=== PATIENT | female | born 1990 ===

== ENCOUNTER 2021-06-30 11:00 | Outpatient (RCR) | payer BC, SELFPAY | END 2021-09-16 07:55 | disposition home or self-care (01) | LOC: HO.PT 11:00 | PROVIDERS: PCP Family Medicine | DX: R10.2 Pelvic and perineal pain (principal) | CPT/HCPCS: 97110; 97112; 97161 ==

== ENCOUNTER 2024-03-21 13:29 | Outpatient (AMB) | payer BC, SELFPAY ==
[2024-03-21 13:45] VITALS: BP 102/64; PULSE 68; O2SAT 98; BMI 26.8
--- NOTE | 2024-03-21 13:45 | MHC.PC.OV ---
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 by: Self / Same As Patient Allergies ciprofloxacin [From Cipro] Allergy (Mild, Verified 03/21/24 13:48) Hives cyclobenzaprine [From Flexeril] Adverse Reaction (Verified 03/21/24 13:48) Muscle cramps Medication List - Last Reconciled 03/21/24 by Biipn Hobson MD [id number] fum-folic [id number] mg-mcg-mg (One Daily ) pkgs PO Tobacco use date assessed: 03/21/24 Dental Screening Dental Screen Date: 03/21/24 Did you have a dental visit in the last 12 months?: Yes Did you have a dental problem in the last 6 months where you did not have access to dental care?: No Was dental information given to patient?: Patient has dentist HPI ACTUARIAL INTERN/Preventative Care HPI Details 33-year-old overweight female being seen for the 1st time. 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 1. Little interest or pleasure in doing things: not at all 2. Feeling down, depressed, or hopeless: not at all 3. Trouble falling or staying asleep, or sleeping too much: not at all 4. Feeling tired or having little energy: not at all 5. Poor appetite or overeating: not at all 6. Feeling bad about yourself - or that you are a failure or have let yourself or your family down: not at all 7. Trouble concentrating on things, such as reading the newspaper or watching television: not at all 8. Moving or speaking so slowly that other people could have noticed. Or the opposite - being so fidgety or restless that you have been moving around a lot more than usual: not at all 9. Thoughts that you would be better off or of hurting yourself in some way: not at all Total score: 0 Depression Screening Interpretation: Negative Depression Screening Done: Yes 47543 - PHQ-9 Billing: Yes Source: Developed by Drs. Nelson Bill, Gill Davila, Delmar Goldberg and colleagues, with an educational navjot from [employer] Thrive Questionnaire Date Thrive assessed: 03/21/24 I am a: Patient What is your living situation today?: I have a steady place to live Within the past 12 months, did the food you bought not last and you didn't have the money to get more?: Never true Within the past 12 months, did you worry whether your food would run out before you got money to buy more?: Never true Do you have trouble paying for medicines?: No Do you have trouble getting transportation to medical appointments?: No Do you have trouble paying your heating and electricity bill?: No Do you have trouble taking care of your child, family member or friend?: No Do you have trouble with day-to-day activities such as bathing, preparing meals, shopping, managing finances, etc.?: No Are you currently unemployed and looking for a job?: No Are you interested in more education?: No Please select the resources that you would like help with: None Currently or been in a relationship where the following occur: no concerns reported THRIVE Score: 0 AUDIT C Alcohol Use Questionnaire (AUDIT-C) 1. How often do you have a drink containing alcohol?: Monthly or less 2. How many drinks containing alcohol do you have on a typical day when you are drinking?: 1 or 2 3. How often do you have six or more drinks on one occasion?: Never Total Score: 1 ARNULFO-7 AMB Questionnaire ARNULFO-7 Date ARNULFO - 7 assessed: 03/21/24 Feeling nervous, anxious, or on edge: 0 = Not at all Not being able to stop or control worryin = Not at all Worrying too much about different things: 0 = Not at all Trouble relaxin = Not at all Being so restless that it is hard to sit still: 0 = Not at all Becoming easily annoyed or irritable: 0 = Not at all Feeling afraid as if something awful might happen: 0 = Not at all Total ARNULFO-7 score (0-4 normal; 5-9 mild; 10-14 moderate; 15-21 severe): 0 Source: Developed by Drs. Nelson Bill, Gill Davila, Delmar Goldberg and colleagues, with an educational navjot from [employer] ARNULFO-7 Assessment Billing ARNULFO-7 Assessment Tool: ARNULFO-7 Assessment 84702 Physical exam (Primary Care) Vital Signs: Last Vital Signs Pulse 68 03/21/24 13:45 BP 102/64 03/21/24 13:45 Pulse Ox 98 03/21/24 13:45 Oxygen Delivery Method Room Air 03/21/24 13:45 BMI result Body Mass Index 26.8 Tobacco/Smoking Status: Tobacco use Status Tobacco use date assessed 03/21/24 03/21/24 13:53 Patient Tobacco Use Status Never used Tobacco 03/21/24 14:20 e-Cigarette/Vaping Use Never Used 03/21/24 14:20 PHQ-9: PHQ-9 Score PHQ-9: Total score 0 03/21/24 14:23 Depression Screening Interpretation: Negative Thrive Assessment: Date of Thrive Assessment Date Thrive assessed 03/21/24 03/21/24 13:51 Currently or been in a relationship where the following occur: no concerns reported Const General: alert; No acute distress Eyes Conjunctivae: conjunctivae normal Resp Auscultation: clear to auscultation bilaterally Cardio Rate: regular rate Rhythm: regular rhythm GI Inspection: Yes normal to inspection Extrem General: Yes normal to inspection and No edema Assessment and Plan Assessment & Plan (1) Overweight: Code(s): E66.3 - Overweight Plan: increase oral fluids , exercise and adequate sleep and eat healthy Coding Level of Care Code New Pt Level 4 (55317) Diagnoses Overweight E66.3 Additional Codes ARNULFO-7 Assessment Billing - ARNULFO-7 Assessment Tool: ARNULFO-7 Assessment 47269 ([id number])
== END 2024-03-21 14:29 | disposition home or self-care (01) ==
PROVIDERS: PCP Internal Medicine; Visit Provider Internal Medicine
DX: E66.3 Overweight (principal)
CPT/HCPCS: 99204

== ENCOUNTER 2024-08-11 13:44 | Outpatient (AMB) | payer BC, SELFPAY ==
--- NOTE | 2024-08-11 13:48 | MHC.PC.OV ---
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 by: Self / Same As Patient Allergies ciprofloxacin [From Cipro] Allergy (Mild, Verified 08/11/24 13:55) Hives cyclobenzaprine [From Flexeril] Adverse Reaction (Verified 08/11/24 13:55) Muscle cramps Medication List - Last Reconciled 08/11/24 by Bipin Hobson MD [id number] fum-folic [id number] mg-mcg-mg (One Daily ) pkgs PO Tobacco use date assessed: 03/21/24 Dental Screening Dental Screen Date: 08/11/24 Did you have a dental visit in the last 12 months?: Yes Did you have a dental problem in the last 6 months where you did not have access to dental care?: No Was dental information given to patient?: Patient has dentist HPI Annual Exam HPI Details 33-year-old female coming in for physical exam. 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 complains of tinnitus seen ENT. [facility] Surgical History (Updated 08/11/24 @ 13:53 by JUAN CARLOS Leal) No pertinent past surgical history Family History Family/Other Mental health disorder Social History Housing: House Alcohol intake: current Comment: once Q 2 weeks 1-2 glasses Patient Tobacco Use Status: Never used Tobacco e-Cigarette/Vaping Use: Never Used Second Hand Smoke Exposure: No service: No Current occupational status: employed Current occupational exposures/hazards: No Cognitive needs: No Hearing needs: No Vision needs: No Questionnaire PHQ-9 Over the last 2 weeks, how often have you been bothered by any of the following problems? 1. Little interest or pleasure in doing things: not at all 2. Feeling down, depressed, or hopeless: not at all 3. Trouble falling or staying asleep, or sleeping too much: not at all 4. Feeling tired or having little energy: not at all 5. Poor appetite or overeating: not at all 6. Feeling bad about yourself - or that you are a failure or have let yourself or your family down: not at all 7. Trouble concentrating on things, such as reading the newspaper or watching television: not at all 8. Moving or speaking so slowly that other people could have noticed. Or the opposite - being so fidgety or restless that you have been moving around a lot more than usual: not at all 9. Thoughts that you would be better off or of hurting yourself in some way: not at all Total score: 0 Depression Screening Interpretation: Negative Depression Screening Done: Yes Source: Developed by Drs. Nelson Bill, Gill Davila, Delmar Goldberg and colleagues, with an educational navjot from [employer]. Thrive Questionnaire Date Thrive assessed: 08/05/24 I am a: Patient What is your living situation today?: I have a steady place to live Within the past 12 months, did the food you bought not last and you didn't have the money to get more?: Never true Within the past 12 months, did you worry whether your food would run out before you got money to buy more?: Never true Do you have trouble paying for medicines?: No Do you have trouble getting transportation to medical appointments?: No Do you have trouble paying your heating and electricity bill?: No Do you have trouble taking care of your child, family member or friend?: No Do you have trouble with day-to-day activities such as bathing, preparing meals, shopping, managing finances, etc.?: No Are you currently unemployed and looking for a job?: No Are you interested in more education?: No Please select the resources that you would like help with: None Currently or been in a relationship where the following occur: No concerns reported THRIVE Score: 0 AUDIT C Alcohol Use Questionnaire (AUDIT-C) 1. How often do you have a drink containing alcohol?: Monthly or less 2. How many drinks containing alcohol do you have on a typical day when you are drinking?: 1 or 2 3. How often do you have six or more drinks on one occasion?: Never Total Score: 1 ARNULFO-7 AMB Questionnaire ARNULFO-7 Date ARNULFO - 7 assessed: 08/11/24 Feeling nervous, anxious, or on edge: 0 = Not at all Not being able to stop or control worryin = Not at all Worrying too much about different things: 0 = Not at all Trouble relaxin = Not at all Being so restless that it is hard to sit still: 0 = Not at all Becoming easily annoyed or irritable: 1 = Several days Feeling afraid as if something awful might happen: 0 = Not at all Total ARNULFO-7 score (0-4 normal; 5-9 mild; 10-14 moderate; 15-21 severe): 1 Source: Developed by Drs. Nelson Bill, Gill Davila, Delmar Goldberg and colleagues, with an educational navjot from [employer]. Review of Systems Const Denies poor appetite and Denies weakness Eyes Denies no additional complaints ENT Reports Normal hearing present, Denies dizziness, Denies nasal congestion, Denies tinnitus and Denies sore throat Card Denies chest pain, Denies syncope, Denies rapid heart rate and Denies dyspnea Resp Denies cough and Denies dyspnea GI Denies change in stool character, Reports constipation, Denies diarrhea, Denies nausea and Denies vomiting Denies urinary frequency, Denies difficulty voiding and Denies dysuria Neuro Reports Normal hearing present, Denies confusion, Denies dizziness, Denies syncope and Denies weakness Psych Denies confusion Physical exam (Primary Care) BMI result Body Mass Index 26.2 Tobacco/Smoking Status: Tobacco use Status Tobacco use date assessed 03/21/24 03/21/24 13:53 Patient Tobacco Use Status Never used Tobacco 03/21/24 14:20 e-Cigarette/Vaping Use Never Used 03/21/24 14:20 Depression Screening Interpretation: Negative Thrive Assessment: Date of Thrive Assessment Date Thrive assessed 08/05/24 08/05/24 18:24 Currently or been in a relationship where the following occur: No concerns reported Const General: No confusion Orientation/consciousness: No confusion HENMT Head: Yes normocephalic Ears: external ears normal and TM's normal bilaterally Face and sinus: Yes normal facial exam Mouth: moist mucous membranes Throat: Yes tonsils normal Eyes Conjunctivae: conjunctivae normal Pupils: Equal, round and reactive pupils present and Pupil accommodation reflex normal Direct Ophthalmoscopy: normal light reflex Neck Neck: No lymphadenopathy Thyroid: Thyroid normal Chest Chest palpation & inspection: normal inspection of the chest Resp Effort & Inspection: normal respiratory effort and no audible wheezes Auscultation: clear to auscultation bilaterally, no crackles, no wheezes and lung sounds not diminished Cardio Rate: regular rate Rhythm: regular rhythm Peripheral pulses: radial pulses present and dorsalis pedis present GI Palpation (GI): no masses Auscultation: normal bowel sounds and normoactive bowel sounds Rectal Exam - Female: deferred Skin General skin exam: no rashes or lesions noted Rashes: no rashes Neuro General: No confusion Cranial nerves: Yes Equal, round and reactive pupils present and Yes Normal hearing present Cognition (Neuro): normal cognition Gait exam (Neuro): Normal gait present Motor exam (neuro): 5/5 motor strength present throughout Deep tendon reflexes (DTR's): Right brachioradialis reflex intensity grade: 2+, Left brachioradialis reflex intensity grade: 2+, Right patellar reflex intensity grade: 2+ and Left patellar reflex intensity grade: 2+ Extrem General: No edema Assessment and Plan Assessment & Plan (1) Annual physical exam: Code(s): Z00.00 - Encounter for general adult medical examination without abnormal findings Plan: Patient is advised to eat healthy, keep well hydrated, keep active and have adequate sleep. (2) : Code(s): Z34.90 - Encounter for supervision of normal , unspecified, unspecified trimester Coding Level of Care Code Est Pt Prev Care 18-39y(68851) Diagnoses Annual physical exam Z00.00 Z34.90
[2024-08-11 13:49] VITALS: BP 100/72; PULSE 80; O2SAT 99; BMI 26.2
== END 2024-08-11 14:10 | disposition home or self-care (01) ==
PROVIDERS: PCP Internal Medicine; Visit Provider Internal Medicine
DX: Z00.00 Encounter for general adult medical examination without abnormal findings (principal); Z34.90 Encounter for supervision of normal pregnancy, unspecified, unspecified trimester

== ENCOUNTER → 2024-08-11 13:44 | Outpatient (BNVA) | payer BC, SELFPAY | PROVIDERS: PCP Internal Medicine; Visit Provider Internal Medicine | DX: Z00.00 Encounter for general adult medical examination without abnormal findings (principal); Z34.90 Encounter for supervision of normal pregnancy, unspecified, unspecified trimester | CPT/HCPCS: 96127 ==

== ENCOUNTER 2024-09-04 12:19 | Outpatient (AMB) | payer BC, SELFPAY ==
--- NOTE | 2024-09-04 12:34 | MHC.OFFWIV ---
Intake Vital Signs 09/04/24 12:36 09/04/24 12:55 Height 5 ft 5.5 in Weight 163 lb BMI 26.7 BP 120/70 Blood Pressure Location Rt brachial Position Sitting Pulse 105 H 90 Pulse Source Pulse Oximeter Temp 98.6 F Pulse Oximetry (%) 98 100 Oxygen Delivery Method Room Air Intake Visit Reasons: EP-severe cough, sob Intake Note: Patient here for cough,crackling in chest, wheezing and SOB that has been present for about 1 week. pt is 7 weeks . Patient Tobacco Use Status: Never used Tobacco Allergies ciprofloxacin [From Cipro] Allergy (Mild, Verified 09/04/24 12:37) Hives cyclobenzaprine [From Flexeril] Adverse Reaction (Verified 09/04/24 12:37) Muscle cramps Do you need a note to return to daycare/school/sports/work: No HPI EP-severe cough, sob HPI Details This note is constructed using voice recognition software. While every effort has been made to ensure accuracy, planning and analysis manager errors may have been included. The patient is a 33 year old female who presents to the clinic today with cough for the past week and a half. She denies fever, chills, dyspnea, does report that she has had the cough for about a week and a half with no other symptoms. She notes that her son has also been coughing, but his is related to postnasal drip. She is getting up thin clear secretions, minimal amount. She does report that the cough is quite forceful. She has not taken anything to relieve the cough as she is 7 weeks and was unsure what it was safe to take. She does note that when she coughs she has some sort of wheezing. She denies body aches, fevers, chills, sinus congestion, ear pain, or any other URI symptoms. [facility] Surgical History (Updated 08/11/24 @ 13:53 by JUAN CARLOS Leal) No pertinent past surgical history Family History Family/Other Mental health disorder Social History Housing: House Alcohol intake: current Comment: once Q 2 weeks 1-2 glasses Patient Tobacco Use Status: Never used Tobacco e-Cigarette/Vaping Use: Never Used Second Hand Smoke Exposure: No service: No Current occupational status: employed Current occupational exposures/hazards: No Cognitive needs: No Hearing needs: No Vision needs: No Review of Systems Const All systems reviewed & are unremarkable except as noted in HPI and below Physical Exam Vital Signs: Last Vital Signs Temp 98.6 F 09/04/24 12:36 Pulse 105 H 09/04/24 12:36 BP 120/70 09/04/24 12:36 Pulse Ox 98 09/04/24 12:36 Oxygen Delivery Method Room Air 09/04/24 12:36 BMI result Body Mass Index 26.7 Const General: cooperative, healthy appearing, comfortable and no acute distress Orientation/consciousness: patient oriented x3 Limitations: no limitations HEENT Head: Yes normal to inspection Ears: hearing grossly normal bilaterally, external ears normal and TM abnormal retracted General nose exam: Normal external nose present, No nasal discharge present and Abnormal mucous membranes and turbinates present boggy and pale Face and sinus: Yes normal facial exam and Yes sinuses nontender Mouth: Normal oral and palatal mucosa present and moist mucous membranes Throat: Yes tonsils normal, Yes uvula midline, Yes posterior oropharynx abnormal (Erythema), Yes postnasal drainage and Yes cobblestoning Eyes General: appearance normal, both eyes and all related structures Neck Neck: Yes normal visual inspection Resp Effort & Inspection: normal respiratory effort, able to speak in complete sentences, Actively coughing, no respiratory distress, not tachypneic, no tripod positioning and no use of accessory muscles Auscultation: clear to auscultation bilaterally (Wheeze that clears with cough) Cardio Rate: regular rate Rhythm: regular rhythm Heart sounds: normal S1 and S2 Skin General skin exam: no rashes or lesions noted Neuro General: patient oriented x3 Extrem General: Yes normal to inspection and Yes no clubbing, cyanosis or edema Assessment & Plan Assessment & Plan (1) Allergic rhinitis: Code(s): J30.9 - Allergic rhinitis, unspecified Qualifiers: Allergic rhinitis trigger: unspecified Allergic rhinitis seasonality: unspecified Qualified Code(s): J30.9 - Allergic rhinitis, unspecified Plan: Supportive measures encouraged and reviewed. Advised patient to try second-generation antihistamine such as Zyrtec, Claritin, Juany or similar, with preference for claritin due to large amounts of supporting research of safe us in . Advised consideration of sinus rinse if needed. Albuterol inhaler prescribed for symptomatic management of wheeze. Patient instructed in use of inhaler. Advised patient to follow up with primary care provider with worsening or failure to resolve. Plan See above for full details and plan. Medications: New albuterol sulfate 90 mcg/actuation 1 inh inhalation Q4-6H PRN 1 ea 0RF shortness of breath or wheezing Coding Level of Care Code Est Pt Level 3 (20064) Diagnoses Allergic rhinitis, unspecified seasonality, unspecified trigger J30.9 Allergic rhinitis trigger: unspecified Allergic rhinitis seasonality: unspecified
[2024-09-04 12:36] VITALS: BP 120/70; PULSE 105; TEMP 37; O2SAT 98; BMI 26.7
[2024-09-04 12:55] VITALS: PULSE 90; O2SAT 100
== END 2024-09-04 13:01 | disposition home or self-care (01) ==
PROVIDERS: PCP Internal Medicine; Visit Provider Registered Nurse
DX: J30.9 Allergic rhinitis, unspecified (principal)

== ENCOUNTER → 2024-09-04 12:19 | Outpatient (BNVA) | payer BC, SELFPAY | PROVIDERS: PCP Internal Medicine; Visit Provider Registered Nurse ==

== ENCOUNTER 2025-03-31 11:35 | Outpatient (AMB) | payer BC, SELFPAY ==
[2025-03-31 12:03] VITALS: BP 102/72; PULSE 103; O2SAT 98; BMI 27.9
--- NOTE | 2025-03-31 12:03 | A.OFFPC_ITS ---
Vital Signs 03/31/25 12:03 Height 5 ft 5.5 in Weight 170 lb BMI 27.9 BP 102/72 Blood Pressure Location Lt brachial Position Sitting Pulse 103 H Pulse Source Pulse Oximeter Pulse Oximetry (%) 98 Oxygen Delivery Method Room Air Intake Visit Reasons: Ear blocked Allergies ciprofloxacin [From Cipro] Allergy (Mild, Verified 03/31/25 12:03) Hives cyclobenzaprine [From Flexeril] Adverse Reaction (Verified 03/31/25 12:03) Muscle cramps Tobacco use date assessed: 03/31/25 Dental Screening Dental Screen Date: 03/31/25 Did you have a dental visit in the last 12 months?: Yes Did you have a dental problem in the last 6 months where you did not have access to dental care?: No Was dental information given to patient?: Patient has dentist HPI Ear blocked HPI Details R ear complains of impacted cerumen. no pain PFSH Surgical History (Updated 08/11/24 @ 13:53 by JUAN CARLOS Leal) No pertinent past surgical history Family History Family/Other Mental health disorder Social History Housing: House Alcohol intake: current Comment: once Q 2 weeks 1-2 glasses Patient Tobacco Use Status: Never used Tobacco Tobacco use type: Cigarette e-Cigarette/Vaping Use: Never Used Second Hand Smoke Exposure: No service: No Current occupational status: employed Current occupational exposures/hazards: No Cognitive needs: No Hearing needs: No Vision needs: No Questionnaire PHQ-9 Over the last 2 weeks, how often have you been bothered by any of the following problems? 1. Little interest or pleasure in doing things: not at all 2. Feeling down, depressed, or hopeless: not at all 3. Trouble falling or staying asleep, or sleeping too much: not at all 4. Feeling tired or having little energy: not at all 5. Poor appetite or overeating: not at all 6. Feeling bad about yourself - or that you are a failure or have let yourself or your family down: not at all 7. Trouble concentrating on things, such as reading the newspaper or watching television: not at all 8. Moving or speaking so slowly that other people could have noticed. Or the opposite - being so fidgety or restless that you have been moving around a lot more than usual: not at all 9. Thoughts that you would be better off or of hurting yourself in some way: not at all Total score: 0 Source: Developed by Drs. Nelson Bill, Gill Davila, Delmar Goldberg and colleagues, with an educational navjot from [employer]. Thrive Questionnaire Date Thrive assessed: 03/30/25 I am a: Patient What is your living situation today?: I have a steady place to live Within the past 12 months, did the food you bought not last and you didn't have the money to get more?: Never true Within the past 12 months, did you worry whether your food would run out before you got money to buy more?: Never true Do you have trouble paying for medicines?: No Do you have trouble getting transportation to medical appointments?: No Do you have trouble paying your heating and electricity bill?: No Do you have trouble taking care of your child, family member or friend?: No Do you have trouble with day-to-day activities such as bathing, preparing meals, shopping, managing finances, etc.?: No Are you currently unemployed and looking for a job?: No Are you interested in more education?: No Please select the resources that you would like help with: None Currently or been in a relationship where the following occur: No concerns reported THRIVE Score: 0 AUDIT C Alcohol Use Questionnaire (AUDIT-C) 1. How often do you have a drink containing alcohol?: Monthly or less 2. How many drinks containing alcohol do you have on a typical day when you are drinking?: 1 or 2 3. How often do you have six or more drinks on one occasion?: Never Total Score: 1 ARNULFO-7 AMB Questionnaire ARNULFO-7 Date ARNULFO - 7 assessed: 03/31/25 Feeling nervous, anxious, or on edge: 0 = Not at all Not being able to stop or control worryin = Not at all Worrying too much about different things: 0 = Not at all Trouble relaxin = Not at all Being so restless that it is hard to sit still: 0 = Not at all Becoming easily annoyed or irritable: 0 = Not at all Feeling afraid as if something awful might happen: 0 = Not at all Total ARNULFO-7 score (0-4 normal; 5-9 mild; 10-14 moderate; 15-21 severe): 0 Source: Developed by Drs. Nelson Bill, Gill Davila, Delmar Goldberg and colleagues, with an educational navjot from [employer]. Physical exam (Primary Care) Vital Signs: Last Vital Signs Pulse 103 H 03/31/25 12:03 BP 102/72 03/31/25 12:03 Pulse Ox 98 03/31/25 12:03 Oxygen Delivery Method Room Air 03/31/25 12:03 BMI result Body Mass Index 27.9 Tobacco/Smoking Status: Tobacco use Status Tobacco use date assessed 03/31/25 03/31/25 12:06 Patient Tobacco Use Status Never used Tobacco 03/31/25 12:06 Tobacco use type Cigarette 03/31/25 12:06 e-Cigarette/Vaping Use Never Used 03/31/25 12:06 PHQ-9: PHQ-9 Score PHQ-9: Total score 0 03/31/25 12:06 Thrive Assessment: Date of Thrive Assessment Date Thrive assessed 03/30/25 03/31/25 12:06 Currently or been in a relationship where the following occur: No concerns reported Const Other: Normal ear, no impacted cerumen Coding Level of Care Code Est Pt Level 3 (71466) Diagnoses Tinnitus H93.19 Z34.90 Assessment & Plan Assessment & Plan (1) Tinnitus: Code(s): H93.19 - Tinnitus, unspecified ear Category: Medical (2) : Code(s): Z34.90 - Encounter for supervision of normal , unspecified, unspecified trimester Category: Medical Plan History of Present Illness The patient is a 34-year-old female presenting with an acute problem. The only specific documentation of her medical history available from the current conversation notes she was last seen on August 11, 2024, and a pap smear was conducted in May 2020. Details on the onset and progression of the current issue, factors impacting the condition, and other relevant aspects of her medical history are unavailable. Health Maintenance - Pap smear completed in May 2020 Social History Review of Systems - General: Reports overweight status Physical Exam Results Plan A comprehensive evaluation and management plan addressing the acute problem, Continuation of regular follow-ups will ensure health monitoring and evaluation of any necessary adjustments in her therapy. Patient was informed and verbally consented to the use of an ambient scribe for clinic note documentation during this visit. Discussion Notes During the visit, discussed with the patient that the ear is normal TM is intact no impacted cerumen noted Patient Instructions - Follow-up with dietary and lifestyle changes to address weight management. - - Return for scheduled appointments to review progress.
--- OUTSIDE RECORDS SUMMARY | 2025-03-31 12:49 | XMS_ITS | Clinical Summary ---
Author Organization [facility] Address [address] [place] [address] Care Team Providers Care Dining Car Steward Name Role Phone Unavailable Primary Care Provider Unavailabl e Immunizations Immunization Administration Dates Next Due Covid-19 Adenovirus Vaccine - Rizwan 01/15/2021 Social History Tobacco Use Types Packs/Day Years Used Date Smoking Tobacco: Never Assessed Comments Unknown Sex and Gender Information Value Date Recorded Sex Assigned at Not on file Legal Sex Female 8:37 AM EST Gender Identity Female 01/13/2021 8:41 AM EST Sexual Orientation Not on file Plan of Treatment Health Maintenance Due Date Last Done Comments Hepatitis C Virus Screening 1989 HIV Screening 2002 DTaP/Tdap/Td Vaccines (1 - Tdap) 2008 Hepatitis B Vaccines (1 of 3 - 19+ 3-dose series) 2008 Pap Smear (Ages 21-65) 2010 COVID-19 Vaccine (2 - 2023-2 5 season) 2024 01/15/2021 Influenza Vaccine 06/12/2025 HPV Vaccines Aged Out No longer eligi ble based on patient's age to complete this topic Pneumococcal Vaccine: Pediat nimesh (0-5 Years) and At-Risk Patients (6 to 49 Years) Aged Out No longer eligible b ased on patient's age to complete this topic Insurance [address] [place] [address] [facility] PPO
== END 2025-03-31 12:15 | disposition home or self-care (01) ==
LOC: HO.HMCH 11:36
PROVIDERS: PCP Internal Medicine; Visit Provider Internal Medicine
DX: H93.19 Tinnitus, unspecified ear (principal); Z34.90 Encounter for supervision of normal pregnancy, unspecified, unspecified trimester

== ENCOUNTER → 2025-03-31 11:35 | Outpatient (BNVA) | payer BC, SELFPAY | PROVIDERS: PCP Internal Medicine; Visit Provider Internal Medicine ==

== ENCOUNTER 2025-10-07 12:59 | Outpatient (AMB) | payer BC, SELFPAY ==
[2025-10-07 13:05] VITALS: BP 104/68; PULSE 79; O2SAT 98; BMI 27.4
--- NOTE | 2025-10-07 13:05 | MHC.PC.OV ---
Vital Signs 10/07/25 13:05 Height 5 ft 5.5 in Weight 167 lb BMI 27.4 BP 104/68 Blood Pressure Location Lt brachial Position Sitting Pulse 79 Pulse Source Pulse Oximeter Pulse Oximetry (%) 98 Oxygen Delivery Method Room Air Intake Visit Reasons: pe Allergies ciprofloxacin (From Cipro) Allergy (Mild, Verified 10/07/25 13:06) Hives cyclobenzaprine (From Flexeril) Adverse Reaction (Verified 10/07/25 13:06) Muscle cramps Medication List - Last Reconciled 10/07/25 by Bipin Hobson MD 75-iron [id number] mg-mcg-mg (One Daily ) pkgs PO Tobacco use date assessed: 03/31/25 Dental Screening Dental Screen Date: 03/31/25 HPI pe HPI Details C section july 2025 gave breech HPI Comments History of Present Illness Details History of Present Illness The patient is a 34 year old individual presenting for a physical exam. The patient had a , which resulted in a section due to a breech presentation. The incision is healing well and the patient has been performing scar massage. The patient is currently and taking vitamins, with no other medications reported. Known allergies include cyclobenzaprine and ciprofloxacin, with no new allergies reported. 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 In the patient's early 20s, there was an abnormal Pap smear, but a follow-up test was clear, and there is no history of a positive HPV test. Family history is notable for Type 2 diabetes on the patient's father's side. There is no family history of heart attacks, strokes, or cancer. There is a maternal family history of fibrocystic breast disease, with prior biopsies being benign. The patient did not have gestational diabetes during the recent . Health Maintenance The patient is due for a Pap smear and has appropriately scheduled this with another provider. Current guidelines for HPV testing and Pap smear frequency were discussed. Routine eye examinations are recommended every couple of years. The patient's immunizations are up to date. Social History - The patient is currently . - The patient's only reported medication is vitamins. - The ENT attributed the patient's hearing loss to listening to loud music through headphones during childhood. Results [facility] Medical History (Updated 10/07/25 @ 13:30 by Bipin Hobson MD) Surgical History (Updated 10/07/25 @ 13:29 by Bipin Hobson MD) S/P section No pertinent past surgical history Family History Family/Other Mental health disorder Social History Housing: House Alcohol intake: current Comment: once Q 2 weeks 1-2 glasses Patient Tobacco Use Status: Never used Tobacco Tobacco use type: Cigarette e-Cigarette/Vaping Use: Never Used Second Hand Smoke Exposure: No service: No Current occupational status: employed Current occupational exposures/hazards: No Cognitive needs: No Hearing needs: No Vision needs: No Questionnaire Thrive Questionnaire Date Thrive assessed: 03/30/25 I am a: Patient What is your living situation today?: I have a steady place to live Within the past 12 months, did the food you bought not last and you didn't have the money to get more?: Never true Within the past 12 months, did you worry whether your food would run out before you got money to buy more?: Never true Do you have trouble paying for medicines?: No Do you have trouble getting transportation to medical appointments?: No Do you have trouble paying your heating and electricity bill?: No Do you have trouble taking care of your child, family member or friend?: No Do you have trouble with day-to-day activities such as bathing, preparing meals, shopping, managing finances, etc.?: No Are you currently unemployed and looking for a job?: No Are you interested in more education?: No Please select the resources that you would like help with: None Currently or been in a relationship where the following occur: No concerns reported THRIVE Score: 0 ARNULFO-7 AMB Questionnaire ARNULFO-7 Date ARNULFO - 7 assessed: 03/31/25 Source: Developed by Drs. Nelson Bill, Gill Davila, Delmar Goldberg and colleagues, with an educational navjot from [employer]. Review of Systems Narrative Review of Systems - Constitutional: Denies fevers. - Eyes: Denies vision problems. - HEENT: Reports tinnitus in one ear and stable high-frequency hearing loss. Denies dysphagia. - Cardiovascular: Denies chest heaviness or discomfort. - Respiratory: Denies waking up short of breath. - Gastrointestinal: Reports good bowel movements. Denies heartburn, constipation, nausea, or vomiting. - Genitourinary: Denies nocturia. - Breasts: Denies finding any lumps or bumps and confirms performing self-checks. - Neurological: Denies a history of passing out. Const Denies poor appetite and Denies weakness Eyes Denies no additional complaints ENT Reports Normal hearing present, Denies dizziness, Denies nasal congestion, Denies tinnitus and Denies sore throat Card Denies chest pain, Denies syncope, Denies rapid heart rate and Denies dyspnea Resp Denies cough and Denies dyspnea GI Denies change in stool character, Reports constipation, Denies diarrhea, Denies nausea and Denies vomiting Denies urinary frequency, Denies difficulty voiding and Denies dysuria Neuro Reports Normal hearing present, Denies confusion, Denies dizziness, Denies syncope and Denies weakness Psych Denies confusion Physical exam (Primary Care) Vital Signs: Last Vital Signs Pulse 79 10/07/25 13:05 BP 104/68 10/07/25 13:05 Pulse Ox 98 10/07/25 13:05 Oxygen Delivery Method Room Air 10/07/25 13:05 BMI result Body Mass Index 27.4 Tobacco/Smoking Status: Tobacco use Status Tobacco use date assessed 03/31/25 10/07/25 13:06 Patient Tobacco Use Status Never used Tobacco 10/07/25 13:06 Tobacco use type Cigarette 10/07/25 13:06 e-Cigarette/Vaping Use Never Used 10/07/25 13:06 Thrive Assessment: Date of Thrive Assessment Date Thrive assessed 03/30/25 10/07/25 13:06 Currently or been in a relationship where the following occur: No concerns reported Narrative Physical Exam General: Cooperative, healthy appearing, comfortable, no acute distress and well developed Orientation: Patient oriented x3 Limitations: No limitations Head: Normal to inspection Ears: Hearing low level deafness in both ears at very high frequencies, tinnitus in one ear Nose: Normal external nose present Face and sinus: Normal facial exam Eyes: Appearance normal, both eyes and all related structures Neck: Normal visual inspection and Yes full ROM Respiratory: Normal respiratory effort and able to speak in complete sentences. Clear to auscultation bilaterally Cardiovascular: Regular rate and rhythm. Normal S1 and S2 GI: Normal to inspection. Soft to palpation and nontender Skin: No rashes or lesions noted Neuro: Patient oriented x3 Extremities: Normal to inspection Const General: No confusion Orientation/consciousness: No confusion HENMT Head: Yes normocephalic Ears: external ears normal and TM's normal bilaterally Face and sinus: Yes normal facial exam Mouth: moist mucous membranes Throat: Yes tonsils normal Eyes Conjunctivae: conjunctivae normal Pupils: Equal, round and reactive pupils present and Pupil accommodation reflex normal Direct Ophthalmoscopy: normal light reflex Neck Neck: No lymphadenopathy Thyroid: Thyroid normal Chest Chest palpation & inspection: normal inspection of the chest Resp Effort & Inspection: normal respiratory effort and no audible wheezes Auscultation: clear to auscultation bilaterally, no crackles, no wheezes and lung sounds not diminished Cardio Rate: regular rate Rhythm: regular rhythm Peripheral pulses: radial pulses present and dorsalis pedis present GI Palpation (GI): no masses Auscultation: normal bowel sounds and normoactive bowel sounds Rectal Exam - Female: deferred Skin General skin exam: no rashes or lesions noted Rashes: no rashes Neuro General: No confusion Cranial nerves: Yes Equal, round and reactive pupils present and Yes Normal hearing present Cognition (Neuro): normal cognition Gait exam (Neuro): Normal gait present Motor exam (neuro): 5/5 motor strength present throughout Deep tendon reflexes (DTR's): Right brachioradialis reflex intensity grade: 2+, Left brachioradialis reflex intensity grade: 2+, Right patellar reflex intensity grade: 2+ and Left patellar reflex intensity grade: 2+ Extrem General: No edema Coding Level of Care Code Est Pt Prev Care 18-39y(68866) Diagnoses Annual physical exam Z00.00 Assessment & Plan Assessment & Plan (1) Annual physical exam: Code(s): Z00.00 - Encounter for general adult medical examination without abnormal findings Category: Medical Plan: Patient is advised to eat healthy, keep well hydrated, keep active and have adequate sleep. Plan Plan Patient was informed and verbally consented to the use of an ambient scribe for clinic note documentation during this visit. 1. Annual Physical Examination Baseline fasting laboratory work, including sugar and cholesterol levels, will be ordered for health screening, which is important given the family history of diabetes. General health counseling was provided on the importance of hydration, physical activity, and a healthy diet. The patient will follow up in one year for the next annual exam. 2. Cerumen Accumulation Non-occlusive cerumen was noted in one ear. The patient was advised against using Q-tips. If the earwax becomes problematic, flushing will be necessary. Discussion Notes I performed a physical examination on this 34-year-old individual who is currently after a , which is healing well. We discussed the plan to obtain baseline fasting blood work for sugar and cholesterol screening, noting that does not affect the results. I reinforced the importance of routine health maintenance, including Pap smears and eye exams, and provided counseling on a healthy lifestyle involving diet, hydration, and exercise. We will follow up in one year, but the patient was advised to contact me if any problems arise in the interim. Patient Instructions - Please go for the baseline blood work that we discussed. - You must fast for 8 hours before the blood test, meaning no food, but sips of water are allowed. - Keep your scheduled Pap smear appointment. - It is recommended that you schedule an eye exam, as they should be done every couple of years. - Avoid using Q-tips in your ears. - Continue to stay hydrated, exercise, and eat a healthy diet. - Please schedule a follow-up visit in one year for your next physical exam, or contact us sooner if any issues arise. Orders: Orders Comprehensive Met. Panel Today Z00.00 - Encounter for general adult medical examination without abnormal findings Vitamin B12 and Folate Today Z00.00 - Encounter for general adult medical examination without abnormal findings Hemoglobin A1c Today Z00.00 - Encounter for general adult medical examination without abnormal findings Complete Blood Count Auto Diff Today Z00.00 - Encounter for general adult medical examination without abnormal findings Free T4 (Free Thyroxine) Today Z00.00 - Encounter for general adult medical examination without abnormal findings Thyroid Stimulating Hormone Today Z00.00 - Encounter for general adult medical examination without abnormal findings Lipid Panel Today E78.00 - Pure hypercholesterolemia, unspecified, Z00.00 - Encounter for general adult medical examination without abnormal findings Vitamin D 25-OH Total Today Z00.00 - Encounter for general adult medical examination without abnormal findings
--- OUTSIDE RECORDS SUMMARY | 2025-10-07 16:05 | XMS_ITS | Clinical Summary ---
Author Organization [facility] Address [address] [address] Phone Care Team Providers Care Gm Mobile Name Role Phone Pcp, Unknown Primary Care Provider Unavailabl e Allergies Active Allergy Reactions Criticality Noted Date Comments Ciprofloxacin Hives 05/03/2010 Cyclobenzaprine Other (See Comments) 05/03/2010 muscles tense up/ spasm Medications triamcinolone acetonide 0.1 % cream Apply topically 2 (two) times a day. 45 g 5 8 Active predniSONE (DELTASONE) 50 MG tablet Take 1 tablet (50 mg total) by mouth daily. 5 tablet 9 Active Active Problems Problem Noted Date Diagnosed Date History of peptic ulcer disease 05/30/2018 Annual physical exam 05/30/2018 Overview (05/30/2018): [facility]. Has Florina IUD History of anemia 05/30/2018 Overview (05/30/2018): [facility] managed. Immunizations Immunization Administration Dates Next Due Hepatitis B Adult 06/05/2015 MMR 06/07/2015 PPD Test 06/01/2018,05/30/2018,03/05/2017 ,06/03/2015 Tdap 06/03/2015 Varicella 06/07/2015 Family History Relation Status Comments Father alive, healthy Mother alive, healthy Sister 4 sisters: all a live 1 has digestive problems Social History Tobacco Use Types Packs/Day Years Used Date Smoking Tobacco: Never Smokeless Tobacco: Never Education Answer Date Recorded Are you interested in more education? Not on [place] e 03/22/2023 Are you concerned about learning? Not on file 03/22/2023 No 03/22/2023 No 03/22/2023 Digital Access Answer Date Recorded No 04/08/2023 No 04/08/2023 Reliable internet access at home? Not on file 04/08/2023 Device with a working camera? Not on file Comments Unknown Sex and Gender Information Value Date Recorded Sex Assigned at Female 03/23/2022 11:06 PM EDT Legal Sex Female 6:58 PM EST Gender Identity Female 03/23/2022 11:06 PM EDT Sexual Orientation Bisexual 03/23/2022 11 :06 PM EDT Last Filed Vital Signs Vital Sign Reading Time Taken Comments Blood Pressure 112/76 06/06/2019 3:41 PM EDT Pulse 77 06/06/2019 3:41 PM EDT Temperature 37.3 C (99.1 F) 06/06/2019 3:41 PM EDT Respiratory Rate - - Oxygen Saturation 99% 06/06/2019 3:41 PM EDT Inhaled Oxygen Concentration - - Weight 67.4 kg (148 lb 9.4 oz) 06/06/2019 3:41 P M EDT Height 167 cm (5' 5.75 ) 06/06/2019 3:41 PM EDT Body Mass Index 24.17 06/06/2019 3:41 PM EDT Plan of Treatment Health Maintenance Due Date Last Done Comments HEPATITIS C SCREENING 2007 HIV ONE-TIME SCREENING (18-6 5 YEARS) 2007 PAP SMEAR 01/17/2016 01/16/2013 DEPRESSION SCREENING 05/30/2019 05/30/2018 Adult Td,Tdap Booster 06/03/2025 06/03/2015 INFLUENZA VACCINE (#1) 2025 COVID-19 VACCINE (1 - 2024-2 6 season) 2025 SMOKING STATUS SCREENING (On ce After 26 Yrs) Completed 05/22/2019 HEPATITIS A VACCINES Aged Out No long er eligible based on patient's age to complete this topic HIB VACCINES Aged Out No longer eligi ble based on patient's age to complete this topic IPV VACCINES Aged Out No longer eligi ble based on patient's age to complete this topic MENINGOCOCCAL VACCINES (ACWY) Aged Out No longer eligible based on patient's age to complete this topic MENINGOCOCCAL VACCINES (B) Aged Out N o longer eligible based on patient's age to complete this topic PNEUMOCOCCAL VACCINES (0-49 years) Aged Out No longer eligible based on patient's age to complete this topic Medical Devices Not on file Insurance # [address] [place] [address] [facility] [address] [place] [address] [facility] PPO # [address] [place] [address] [employer] OUT OF STATE PPO [address] [place] [address] [employer] STATE PPO [address] [place] [address] [employer] OUT OF STATE PPO [facility] OUT OF STATE PPO [employer] [place] OUT OF STATE PPO [address] [place] [address] [facility] OUT OF STATE PPO [facility] PPO Care Teams Gm Mobile Relationship Specialty Start Date End Date Pcp, Unknown PCP - General 06/08/22 Additional Source Comments The information contained in this document represents components of the legal health record. It is not the complete legal health record.[facility]
--- OUTSIDE RECORDS SUMMARY | 2025-10-07 16:05 | XMS_ITS | Clinical Summary ---
Author Organization Formerly [facility] Address [address] [place] [address] Care Team Providers Care Topology Professor Name Role Phone Unavailable Primary Care Provider [...] series) 2008 Pap Smear (Ages 21-65) 2010 Influenza Vaccine 06/12/2025 COVID-19 Vaccine (2 - 2024-2 6 season) 2025 01/15/2021 HPV Vaccines (No Doses Required) Completed Pneumococcal Vaccine: Pediat nimesh (0-5 Years) and At-Risk Patients (6 to 49 Years) Aged Out No longer eligible b ased on patient's age to complete this topic Insurance [facility] PPO
== END 2025-10-07 13:50 | disposition home or self-care (01) ==
LOC: HO.HMCH 13:00
PROVIDERS: PCP Internal Medicine; Visit Provider Internal Medicine
DX: Z00.00 Encounter for general adult medical examination without abnormal findings (principal)